=== PATIENT | male | born 1950 | race Caucasian/White ===

== ENCOUNTER 2019-02-10 05:36 | Day surgery (SDC) | payer BC ==
[~2019-02-10] VITALS: Ht 188 cm; Wt 112.0 kg
[2019-02-10] MEDS ORDERED: LACTATED RINGERS 1,000 ML IV SCH (06:08)
[2019-02-10 06:09] VITALS: BP 148/93
[2019-02-10] MEDS ORDERED: GABA300C10 PO (06:20)
[2019-02-10] MEDS ORDERED: IBUP-1223 PO (06:20)
[2019-02-10] MEDS ORDERED: HYDR-3240 PO (06:20)
[2019-02-10] MEDS ORDERED: AMLO2.5T5 PO (06:20)
[2019-02-10] MEDS ORDERED: ASPI-515 PO (06:20)
[2019-02-10] MEDS ORDERED: ALPR-155 PO (06:20)
[2019-02-10] MEDS ORDERED: CYCL-259 PO (06:20)
[2019-02-10] MEDS ORDERED: CELE200C PO (06:20)
[2019-02-10] MEDS ORDERED: BUPIVACAINE/PF 0.5% ONE (06:51)
[2019-02-10] MEDS ORDERED: EPINEPHRINE 1 MG/ML, 1ML ONE (06:51)
[2019-02-10] MEDS ORDERED: LIDOCAINE 1%, 20ML ONE (06:52)
[2019-02-10] MEDS ORDERED: FENTANYL PF 100 MCG/2ML ONE (07:43)
[2019-02-10] MEDS ORDERED: MIDAZOLAM 1 MG/ML, 2ML ONE (07:43)
[2019-02-10] MEDS ORDERED: KETAMINE 10 MG/ML, 20ML ONE (07:49)
[2019-02-10] MEDS ORDERED: CEFAZOLIN 1,000 MG ONE (07:59)
[2019-02-10] MEDS ORDERED: PROPOFOL 10 MG/ML, 20ML ONE (07:59)
[2019-02-10] MEDS ORDERED: DEXAMETHASONE 4 MG/ML, 1ML ONE (07:59)
[2019-02-10] MEDS ORDERED: EPHEDRINE 50 MG/ML, 1ML ONE (07:59)
[2019-02-10] MEDS ORDERED: ONDANSETRON 2MG/ML, 2ML ONE (07:59)
[2019-02-10] MEDS ORDERED: SUCCINYLCHOLINE 20 MG/ML, 10ML ONE (07:59)
[2019-02-10] MEDS ORDERED: METOCLOPRAMIDE 5 MG/ML, 2ML ONE (07:59)
[2019-02-10] MEDS ORDERED: HYDROmorphone 1 MG/ML, 1ML INJ IV PRN (09:30)
[2019-02-10] MEDS ORDERED: MEPERIDINE/PF 25MG/0.5ML IVPush PRN (09:30)
[2019-02-10] MEDS ORDERED: FENTANYL PF 100 MCG/2ML IV PRN (09:30)
[2019-02-10] MEDS ORDERED: MIDAZOLAM 1 MG/ML, 2ML IV PRN (09:30)
[2019-02-10] MEDS ORDERED: OXYcodone 5 MG/5 ML ORAL.SOL UDC PO PRN (09:30)
[2019-02-10] MEDS ORDERED: ONDANSETRON 2MG/ML, 2ML IVPush PRN (09:30)
[2019-02-10] MEDS ORDERED: LABETALOL 5MG/ML, 20ML IV PRN (09:30)
== END 2019-02-10 11:32 | disposition home or self-care (01) ==
LOC: OUT 05:36
PROVIDERS: ATTEND Orthopaedic Surgery Orthopaedic Surgery of the Spine
DX: M48.54XA Collapsed vertebra, not elsewhere classified, thoracic region, initial encounter for fracture (principal); I10 Essential (primary) hypertension; F17.210 Nicotine dependence, cigarettes, uncomplicated
CPT/HCPCS: 22513; 72072; 88307; 88311; C1713; J0171; J0330; J0690; J1100; J2250; J2405; J2704; J2765; J3010